=== PATIENT | male | born 1965 | race Caucasian/White ===

== ENCOUNTER 2021-07-03 08:02 | Day surgery (SDC) | payer OTHER ==
[~2021-07-03] VITALS: Ht 170 cm; Wt 129.0 kg
[~2021-07-03 08:02] MED LIST: EUTHYROX88 MCG PO; FLUTICASONE PRO16 GM; LISINOPRIL5 MG PO; METFORMIN HCL500 M1 PO; MONTELUKAST SOD10 MG PO; NAPROXEN500 MG PO; PROVENTIL HFA6.7 GM INH; SIMVASTATIN20 MG PO; VITAMIN D3125 MC1 PO
--- NOTE | 2021-07-03 11:27 | NUR ---
PT. HAD A LTKR THIS DATE. [facility] TO DELIVER A ROLLING WALKER UPON DISCHARGE. PT MADE OWN APPT WITH DARYL HUGHES FOR 07/05/21 @ 9:00 A.M.
[2021-07-04 03:25] LABS: BASOPHIL 0.1 % (0-2); EOSINOPHIL 0 % (0-5); HCT 38.6 % (42.0-52.0); HGB 12.5 g/dl (13.2-18.0); LYMPHOCYTE 9.5 % (15-48); MCH 28.3 pg (25.0-31.0); MCHC 32.4 g/dL (32.0-36.0); MCV 87.3 fL (78.0-100.0); MONOCYTE 6.1 % (0-12); NEUTROPHIL 83.8 % (41-80); NRBC 0; PLT 195 K/uL (150-400); RBC 4.42 M/uL (4.70-6.00); RDW 13.7 % (11.5-14.0); WBC 11.1 K/uL (4.0-10.5)
[2021-07-04 03:43] LABS: BUN/CREAT RATIO (CALC) 15.7 RATIO; CREATININE 0.89 mg/dL (0.67-1.17); POTASSIUM 4.4 mmol/L (3.5-5.1)
[2021-07-04] MEDS ORDERED: FEOSOL325 MG PO (09:23)
[2021-07-04] MEDS ORDERED: CHILDREN'S ASPI81 MG PO (09:23)
== END 2021-07-04 11:00 | disposition home or self-care (01) ==
LOC: FAS 08:02 → FOFB 10:56 → FAS 12:30
PROVIDERS: Orthopaedic Surgery
DX: M17.0 Bilateral primary osteoarthritis of knee (principal); E11.9 Type 2 diabetes mellitus without complications; I10 Essential (primary) hypertension; G47.33 Obstructive sleep apnea (adult) (pediatric); Z79.82 Long term (current) use of aspirin; Z79.84 Long term (current) use of oral hypoglycemic drugs; M21.162 Varus deformity, not elsewhere classified, left knee
CPT/HCPCS: 36415; 73560; 80048; 85025; 86850; 86900; 86901; 94010; 97110; 97162; 97165; 97530-GP; 97535; C1713; C1776; J0171; J0697; J1100; J1170; J1885; J2001; J2250; J2270; J2405; J2704; J2795; J3010; J7120